=== PATIENT | female | born 2000 | race Caucasian/White ===

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

== ENCOUNTER 2018-03-05 16:01 | Emergency (ER) | payer OTHER ==
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
[2018-03-05 16:08] VITALS: BP 114/76
[2018-03-05] MEDS ORDERED: ACETAMINOPHEN 325 MG TABLET PO STA (16:36)
[2018-03-05] MEDS ORDERED: IBUPROFEN 600 MG TABLET PO STA (16:36)
[2018-03-05 17:01] LABS: BILIRUBIN,URINE NEGATIVE (NEGATIVE); GLUCOSE, URINE (UA) NEGATIVE (NEGATIVE); KETONES,URINE (UA) NEGATIVE (NEGATIVE); LEUKOCYTE ESTERASE, URINE TRACE (NEGATIVE); NITRITE,URINE NEGATIVE (NEGATIVE); OCCULT BLOOD,URINE LARGE (NEGATIVE); PROTEIN,URINE TRACE mg/dL (NEGATIVE); UROBILINOGEN,URINE 4 E.U./dL (NORMAL)
[2018-03-05 17:13] LABS: CLARITY,URINE TURBID (CLEAR)
[2018-03-05 17:16] LABS: BACTERIA,URINE Many /HPF (None Seen); CRYSTALS,URINE 6-10 Calcium Oxalate /LPF; SQUAMOUS EPITHELIAL CELL,UR MANY Squamous (<= Few)
[2018-03-05 17:34] LABS: HCG,QUALITATIVE BLOOD NEGATIVE
== END 2018-03-05 18:05 | disposition home or self-care (01) ==
LOC: ED 16:01
DX: S80.219A Abrasion, unspecified knee, initial encounter (principal); V18.2XXA Unspecified pedal cyclist injured in noncollision transport accident in nontraffic accident, initial encounter; F17.200 Nicotine dependence, unspecified, uncomplicated; R11.2 Nausea with vomiting, unspecified; N30.00 Acute cystitis without hematuria
CPT/HCPCS: 36415; 81001; 84703; 99283; A9270; 81003; 87086

== ENCOUNTER 2019-12-16 07:00 | Outpatient (CLI) | payer MEDICAID, OTHER ==
[2019-12-17 10:41] LABS: MUDS CUTOFF CONCENTRATIONS CUTOFF CONC BELOW:
[2019-12-17 11:30] LABS: AMPHETAMINE SCREEN,URINE NEGATIVE (NEGATIVE); COCAINE SCREEN URINE NEGATIVE (NEGATIVE); METHAMPHETAMINES SCREEN, URINE NEGATIVE (NEGATIVE); OPIATE SCREEN, URINE NEGATIVE (NEGATIVE)
[2019-12-17 11:31] LABS: BENZODIAZEPINES SCREEN, URINE NEGATIVE (NEGATIVE); METHADONE SCREEN, URINE NEGATIVE (NEGATIVE); OXYCODONE SCREEN, URINE NEGATIVE (NEGATIVE); PROPOXYPHENE SCREEN, URINE NEGATIVE (NEGATIVE); TRICYCLIC ANTIDEPRESSANT,URINE NEGATIVE (NEGATIVE)
== END 2019-12-16 23:59 | disposition home or self-care (01) ==
LOC: LAB.R 07:00
PROVIDERS: ATTEND Obstetrics & Gynecology
DX: Z32.01 Encounter for pregnancy test, result positive (principal)
CPT/HCPCS: 80306

== ENCOUNTER 2019-12-31 14:05 | Outpatient (CLI) | payer MEDICAID ==
--- NOTE | 2019-12-31 16:54 | Ultrasound Report ---
Transvaginal images were obtained and included in the transabdominal study. Please see separately dic tated report for complete discussion of both the transabdominal and transvaginal examinations. Reviewed by: Benson Jackman MD on 12/31/2019 4:53 PM PDT Approved by: Benson Jackman MD on 12/31/2019 4:53 PM PDT Station ID: [id number]
--- NOTE | 2019-12-31 16:57 | Ultrasound Report ---
PROCEDURE: OB First Trimester INDICATIONS: POSITIVE TEST OUTSIDE/PRIOR DATING DATA: Last menstrual period (LMP): 11/09/2019. LMP-based estimated date of delivery (LEIDY): 08/15/2020. TECHNIQUE: Real-time scanning was performed of the fetus and maternal pelvic organs, with image documentation. COMPARISON: No comparison study available FINDINGS: Embryo: There is a gestational sac in the uterus with a mean sac diameter of 2.3 cm. A fetus within the gestational sac is present measuring 1 cm with a heart rate of 139 bpm. No evidence of subc horionic hemorrhage. Maternal organs: Both ovaries are identified. Corpus luteum cyst in the left ovary. No free pelvic fl uid or significant ovarian abnormality. IMPRESSION: Single live intrauterine gestation with average ultrasound age of 7 weeks 1 day. Reviewed by: Benson Jackman MD on 12/31/2019 4:56 PM PDT Approved by: Benson Jackman MD on 12/31/2019 4:56 PM PDT Station ID: [id number]
== END 2019-12-31 14:06 | disposition home or self-care (01) ==
LOC: DI 14:05
PROVIDERS: ATTEND Nurse Practitioner Obstetrics & Gynecology
DX: Z32.01 Encounter for pregnancy test, result positive (principal)
CPT/HCPCS: 76801; 76817

== ENCOUNTER 2020-01-25 07:56 | Emergency (ER) | payer MEDICAID ==
--- NOTE | 2020-01-25 08:53 | ED Physician Documentation ---
History of Present Illness - Stated complaint Stated Complaint: CONSTIPATION, ABD PX - Chief complaint Chief Complaint: General - History obtained from History obtained from: Patient - History of Present Illness Timing: How many days ago (5+) - Additonal information Additional information: 19-year-old female on Suboxone is 11 weeks and she has developed constipation. She had only a small bowel movement out 5 days ago and she has had nothing since. She has developed some pain in the left side. She has still been able to eat she has had her usual issue with morning sickness but has been able to hold fluids. 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 HEENT: None Psych: Depression, Anxiety Musculoskeletal: None Derm: None - Past Surgical History Past Surgical History: Yes General: Other - Present Medications Home Medications: Ambulatory Orders Medication Instructions Recorded Confirmed Famotidine 20 mg PO DAILY #30 tablet 03/05/18 Ondansetron Odt [Zofran] 4 mg TL Q6H PRN #25 tablet 03/05/18 Sulfamethox/Trimeth 800/160 1 each PO BID #14 tablet 03/05/18 [Bactrim Ds 800/160] - Allergies Allergies/Adverse Reactions: Allergies Allergy/AdvReac Type Severity Reaction Status Date / Time doxycycline Allergy Unknown Verified 01/25/20 08:04 - Social History Does the pt smoke?: Yes Smoking Status: Current every day smoker Does the pt drink ETOH?: Yes Does the pt have substance abuse?: Yes - Immunizations Immunizations are current?: Yes - POLST Patient has POLST: No PD ED PE NORMAL - Vitals Vital signs reviewed: Yes (normal ) - General General: Alert and oriented X 3, No acute distress, Well developed/nourished - HEENT HEENT: Atraumatic, PERRL, EOMI - Neck Neck: Supple, no meningeal sign, No bony TTP - Cardiac Cardiac: RRR, No murmur - Respiratory Respiratory: No respiratory distress, Clear bilaterally - Abdomen Abdomen: Normal bowel sounds, Soft, Non distended, No organomegaly, Other (mild general tenderness without garding to the left abdomen. 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, No motor deficit, No sensory deficit, Normal speech Eye Opening: Spontaneous Motor: Obeys Commands Verbal: Oriented GCS Score: 15 - Psych Psych: Normal mood, Normal affect Results - Vitals Vitals: Vital Signs - 24 hr 01/25/20 08:04 Temperature 36.9 C Heart Rate 88 Respiratory 18 Rate Blood Pressure 111/64 O2 Saturation 97 Oxygen O2 Source Room air PD MEDICAL DECISION MAKING - ED course Complexity details: reviewed results, re-evaluated patient, considered dif ferential, d/w patient, d/w family ED course: With the use of an oil retention enema the patient is able to have a normal bowel movement her pain is mostly resolved. I have asked the patient to follow this up with milk of magnesia. I have asked the patient to use MiraLAX on a regular basis following this. Departure - Departure Disposition: 01 Home, Self Care Clinical Impression: Constipation Qualifiers: Constipation type: slow transit constipation Qualified Code(s): K59.01 - Slow transit constipation Condition: Stable Instructions: ED Constipation Follow-Up: Petrona Chung CNM, COMPUTATIONAL MATHEMATICIAN [Provider Admit Priv/Credential] - Comments: When you return home today take a dose of milk of magnesia. If you do not have results within 6 hours take a second dose. Follow this up with regular use of miralax.
[2020-01-25 09:42] VITALS: BP 105/63
== END 2020-01-25 09:58 | disposition home or self-care (01) ==
LOC: ED 07:56
DX: O99.611 Diseases of the digestive system complicating pregnancy, first trimester (principal); K59.01 Slow transit constipation; O99.331 Smoking (tobacco) complicating pregnancy, first trimester; F17.200 Nicotine dependence, unspecified, uncomplicated; Z3A.11 11 weeks gestation of pregnancy; Z36.89 Encounter for other specified antenatal screening; O09.71 Supervision of high risk pregnancy due to social problems, first trimester
CPT/HCPCS: 36415; 81599; 85025; 86592; 86762; 86787; 86803; 86850; 86900; 86901; 87340; 87389; 99282

== ENCOUNTER 2020-01-25 09:58 | Outpatient (CLI) | payer MEDICAID ==
[2020-01-25 10:27] LABS: BASOPHILS % (AUTO) 0.1 %; EOSINOPHILS # (AUTO) 0.1 10^3/uL (0.0-0.7); EOSINOPHILS % (AUTO) 0.5 %; HGB - HEMOGLOBIN 12.8 g/dL (12.0-16.0); LYMPHOCYTES # (AUTO) 1.5 10^3/uL (1.5-3.5); LYMPHOCYTES % (AUTO) 16.7 %; MEAN CORPUSCULAR HEMOGLOBIN 30.8 pg (27.0-31.0); MEAN CORPUSCULAR VOLUME 85.8 fL (81.0-99.0); MEAN PLATELET VOLUME 8.7 fL (7.9-10.8); MONOCYTES # (AUTO) 0.4 10^3/uL (0.0-1.0); MONOCYTES % (AUTO) 4.8 %; NEUTROPHILS # (AUTO) 7.1 10^3/uL (1.5-6.6); NEUTROPHILS % (AUTO) 77.5 %; PLT - PLATELET COUNT 274 10^3/uL (130-450); RED BLOOD COUNT 4.15 10^6/uL (4.20-5.40); RED CELL DISTRIBUTION WIDTH 12.1 % (12.0-15.0); WHITE BLOOD COUNT 9.2 x10^3/uL (4.8-10.8)
[2020-01-26 12:46] LABS: HEPATITIS C ANTIBODY REACTIVE (NON-REACTIVE)
[2020-01-26 12:47] LABS: HEPATITIS B SURFACE ANTIGEN NON-REACTIVE (NON-REACTIVE)
[2020-01-26 13:31] LABS: HIV AG/AB 4TH GEN NON-REACTIVE (NON-REACTIVE)
[2020-01-29 00:06] LABS: HCV RNA QNT <1.18 NOT DETECTED Log IU/mL (NOT DETECTED); HCV RNA QUANT RT PCR <15 NOT DETECTED IU/mL (NOT DETECTED)
== END 2020-01-25 09:59 | disposition home or self-care (01) ==
LOC: LAB 09:58
PROVIDERS: ATTEND Obstetrics & Gynecology
DX: Z36.89 Encounter for other specified antenatal screening (principal); O09.70 Supervision of high risk pregnancy due to social problems, unspecified trimester
CPT/HCPCS: 36415; 81599; 85025; 86762; 86787; 86803; 86850; 86900; 86901; 87340; 87389